=== PATIENT | female | born 1975 | race American Indian/Alaskan Native ===

== ENCOUNTER 2017-06-04 12:04 | Emergency (ER) | payer SELFPAY | END 2017-06-04 12:05 | disposition left against medical advice (07) | LOC: ED 12:04 | DX: M79.89 Other specified soft tissue disorders (principal); Z53.21 Procedure and treatment not carried out due to patient leaving prior to being seen by health care provider ==

== ENCOUNTER 2022-05-03 19:49 | Emergency (ER) | payer SELFPAY ==
--- NOTE | 2022-05-04 00:27 | XRay Report ---
LEFT HAND 3 VIEWS INDICATION / CLINICAL INFORMATION: Injury of left hand. COMPARISON: None available. FINDINGS: BONES and JOINT(S): There are acute fractures of the tips of the distal phalanges of the middle and r ing fingers. No other acute fracture or dislocation. SOFT TISSUES: Lacerations of the tips of the middle and ring fingers are noted with associated edema. No radiopaque foreign body is seen. No other significant abnormality. ADDITIONAL FINDINGS: None. IMPRESSION: Open fractures of the left middle and ring fingers as above. Signer Name: Jimenez Noyola MD Signed: 05/04/2022 12:23 AM Workstation Name: [id number]
[2022-05-04 00:31] VITALS: BP 128/64
[2022-05-04] MEDS ORDERED: LIDOCAINE (1%) 10 MG/1 ML VIAL 20 ML MDV INFILTRATI ONE (00:51)
[2022-05-04] MEDS ORDERED: ONDANSETRON 4 MG ODT TAB PO ONE (00:51)
[2022-05-04] MEDS ORDERED: HYDROcodone/ACETAMINOPHEN 5-325 MG TAB PO ONE (00:51)
[2022-05-04] MEDS ORDERED: IBUPROFEN 600 MG TAB PO ONE (00:51)
[2022-05-04] MEDS ORDERED: ceFAZolin 1 GM VIAL IM ONE (00:51)
[2022-05-04] MEDS ORDERED: NEOMY 3.5 MG/BACIT 400 UNITS/POLY B 5000 UNITS/GM OINT PACKET TP ONE (03:35)
--- NOTE | 2022-05-04 04:01 | Emergency Department Report ---
ED Upper Extremity Inj HPI - General Chief Complaint: Wound/Laceration Stated Complaint: LEFT HAND LACERATION Source: patient Mode of arrival: Ambulatory Limitations: No Limitations - History of Present Illness Initial Comments: Patient is a 46-year-old female with no past medical history who presents to the ED with complaint of acute onset persistent painful bleeding distal left middle and ring finger laceration wound after she was accidentally got injured by a lawnmower blade about 8 hours ago. Patient states that she was mowing her lawn when her left hand was hit by a rotating blade of the lawn more resulting in distal left middle and ring finger laceration. Patient states that she is not up-to-date with her tetanus vaccination. Patient denies numbness and tingling or weakness of left hand, syncope, fall, nausea and vomiting, head or neck injuries, back pain or hip pain. MD Complaint: Injury to:: left, hand, finger (distal left middle and ring finger lacerations) -: Gradual, hour(s) (8) Other Extremity Injury: Fingers: Left (Distal left middle and ring finger laceration wounds) Other Injuries: none Handedness: right Place: home Severity scale (0 -10): 6 Improves With: none Worsens With: movement of extremity Context: direct blow, laceration, injury Associated Symptoms: denies other symptoms. denies: weakness, numbness, suspects foreign body, nausea/vomiting, heard/felt popping sensat Treatments Prior to Arrival: bandage - Related Data Previous Rx's Medication Instructions Recorded Last Taken Type Ibuprofen [Motrin] 800 mg PO Q8HR PRN #30 tablet 05/04/22 Unknown Rx cephALEXin [Keflex] 500 mg PO Q8HR #30 cap 05/04/22 Unknown Rx traMADoL [Ultram] 50 mg PO Q6HR PRN #10 tablet 05/04/22 Unknown Rx Allergies Allergy/AdvReac Type Severity Reaction Status Date / Time No Known Allergies Allergy Unverified 05/03/22 20:47 ED Review of Systems ROS: Stated complaint: LEFT HAND LACERATION Other details as noted in HPI Constitutional: denies: chills, fever Eyes: denies: eye pain, eye discharge, vision change ENT: denies: ear pain, throat pain Respiratory: denies: cough, shortness of breath, wheezing Cardiovascular: denies: chest pain, palpitations Endocrine: no symptoms reported Gastrointestinal: denies: abdominal pain, nausea, vomiting, diarrhea Genitourinary: denies: urgency, dysuria, frequency, hematuria, discharge, abnormal menses, dyspareunia Musculoskeletal: arthralgia (distal left middle and ring finger laceration wounds). denies: back pain, joint swelling Skin: other (Bleeding distal left middle and ring finger lacerations). denies: rash, lesions Neurological: denies: headache, weakness, paresthesias Psychiatric: denies: anxiety, depression Hematological/Lymphatic: denies: easy bleeding, easy bruising ED Past Medical Hx - Past Medical History Previous Medical History?: No - Surgical History Past Surgical History?: Yes Additional Surgical History: - Medications Home Medications: Home Medications Medication Instructions Recorded Confirmed Last Taken Type Ibuprofen [Motrin] 800 mg PO Q8HR PRN #30 tablet 05/04/22 Unknown Rx cephALEXin [Keflex] 500 mg PO Q8HR #30 cap 05/04/22 Unknown Rx traMADoL [Ultram] 50 mg PO Q6HR PRN #10 tablet 05/04/22 Unknown Rx ED Physical Exam - General Limitations: No Limitations General appearance: alert, in no apparent distress - Head Head exam: Present: atraumatic, normocephalic, normal inspection - Eye Eye exam: Present: normal appearance, PERRL, EOMI Pupils: Present: normal accommodation - ENT ENT exam: Present: normal exam, normal orophraynx, mucous membranes moist, TM's normal bilaterally, normal external ear exam - Neck Neck exam: Present: normal inspection, full ROM. Absent: tenderness - Respiratory Respiratory exam: Present: normal lung sounds bilaterally. Absent: respiratory distress, wheezes, rales, chest wall tenderness, accessory muscle use, decreased breath sounds, prolonged expiratory - Cardiovascular Cardiovascular Exam: Present: regular rate, normal rhythm, normal heart sounds. Absent: systolic murmur, diastolic murmur, rubs, gallop - GI/Abdominal GI/Abdominal exam: Present: soft, normal bowel sounds. Absent: tenderness, guarding, rebound, hyperactive bowel sounds, hypoactive bowel sounds, organomegaly, mass - Extremities Exam Extremities exam: Present: normal inspection, full ROM, tenderness (Distal left middle and ring finger tenderness due to bleeding laceration wounds with partial nail avulsions), normal capillary refill. Absent: pedal edema, joint swelling, calf tenderness - Back Exam Back exam: Present: normal inspection, full ROM. Absent: tenderness, CVA tenderness (R), CVA tenderness (L), muscle spasm, paraspinal tenderness, vertebral tenderness - Neurological Exam Neurological exam: Present: alert, oriented X3, CN II-XII intact, normal gait, reflexes normal - Psychiatric Psychiatric exam: Present: normal affect, normal mood - Skin Skin exam: Present: warm, dry, intact, normal color, other (Bleeding distal left middle and ring finger laceration wounds with partial nail avulsion). Absent: rash ED Course Vital Signs 05/03/22 05/04/22 05/04/22 20:43 00:30 01:17 Temperature 98.4 F Pulse Rate 75 70 Respiratory 18 12 16 Rate Blood Pressure 127/83 Blood Pressure 128/64 [Left] O2 Sat by Pulse 100 100 Oximetry 05/04/22 01:19 Temperature Pulse Rate Respiratory 16 Rate Blood Pressure Blood Pressure [Left] O2 Sat by Pulse Oximetry - Laceration /Wound Repair Left Distal Finger Wound Location: upper extremity (distal left middle finger laceration) Wound Length (cm): 4 Wound's Depth, Shape: superficial, irregular, nail-avulsed Wound Explored: contaminated Irrigated w/ Saline (ccs): 300 Betadine Prep?: Yes Anesthesia: 1% Lidocaine Volume Anesthetic (ccs): 6 Wound Debrided: extensive Wound Repaired With: sutures Suture Size/Type: 4:0, proline Number of Sutures: 8 Layer Closure?: No Sterile Dressing Applied?: Yes Progress: The wound was cleaned extensively with normal saline and Betadine solution. Lidocaine 1% solution was used as a digital block for local anesthesia. When anesthesia was fully achieved, the wound was sutured per protocol using Prolene 4-0 sutures for a total of 8 sutures. The wound was then cleaned extensively normal saline and Neosporin ointment applied to the wound. The wound was then dressed appropriately and the patient will discharge home with pain medications and prophylactic antibiotics. Left Distal Hand Wound Location: upper extremity (distal left ring finger laceration) Wound Length (cm): 4 Wound's Depth, Shape: superficial, irregular, nail-avulsed, contused tissue Wound Explored: contaminated Irrigated w/ Saline (ccs): 300 Betadine Prep?: Yes Anesthesia: 1% Lidocaine Volume Anesthetic (ccs): 6 Wound Debrided: extensive Wound Repaired With: sutures Suture Size/Type: 4:0, proline Number of Sutures: 6 Layer Closure?: No Sterile Dressing Applied?: Yes Progress: The wound was cleaned extensively with normal saline and Betadine solution. Lidocaine 1% solution was used as a digital block for local anesthesia. When anesthesia was fully achieved, the wound was sutured per protocol using Prolene 4-0 sutures for a total of 8 sutures. The wound was then cleaned extensively normal saline and Neosporin ointment applied to the wound. The wound was then dressed appropriately and the patient will discharge home with pain medications and prophylactic antibiotics ED Medical Decision Making - Radiology Data Radiology results: report reviewed, image reviewed [facility] [address] [place] [address] XRay Report Signed Patient: ABELARDO COLLINS MR#: [id number] : 1975 Acct:[id number] Age/Sex: 46 / F ADM Date: 05/03/22 Loc: ED Attending Dr: Ordering Physician: GALINA SWEET Date of Service: 05/03/22 Procedure(s): XR hand 3+V LT Accession Number(s): [id number] cc: GALINA SWEET Fluoro Time In Minutes: LEFT HAND 3 VIEWS INDICATION / CLINICAL INFORMATION: Injury of left hand. COMPARISON: None available. FINDINGS: BONES and JOINT(S): There are acute fractures of the tips of the distal phalanges of the middle and ring fingers. No other acute fracture or dislocation. SOFT TISSUES: Lacerations of the tips of the middle and ring fingers are noted with associated edema. No radiopaque foreign body is seen. No other significant abnormality. ADDITIONAL FINDINGS: None. IMPRESSION: Open fractures of the left middle and ring fingers as above. Signer Name: Jimenez Noyola MD Signed: 05/04/2022 12:23 AM Workstation Name: [id number] Transcribed By: MN Dictated By: Jimenez Noyola MD Electronically Authenticated By: Jimenez Noyola MD Signed Date/Time: 05/04/2222 DD/ TD/TT: Print - Medical Decision Making This is a 46-year-old female with no past medical history who presents to the ED with complaint of acute onset persistent painful bleeding distal left middle and ring finger laceration wound after she was accidentally got injured by a lawnmower blade about 8 hours ago. Patient states that she was mowing her lawn when her left hand was hit by a rotating blade of the lawn more resulting in distal left middle and ring finger laceration. Patient states that she is not up-to-date with her tetanus vaccination. In the ED, patient is alert and o riented x3 and is not in any distress. Patient was treated for pain in the ED and also received booster tetanus vaccination. Left hand x-ray showed acute fractures of the tips of the distal phalanges of the middle and ring fingers. No other acute fracture or dislocation. Lacerations of the tips of the middle and ring fingers are noted with associated edema. No radiopaque foreign body is seen. No other significant abnormality. The wound was cleaned extensively with normal saline and Betadine solution. Lidocaine 1% solution was used as a digital block for local anesthesia. When anesthesia was fully achieved, the wound was sutured per protocol using Prolene 4-0 sutures for a total of 8 sutures. The wound was then cleaned extensively normal saline and Neosporin ointment applied to the wound. The wound was then dressed appropriately and the patient will discharge home with pain medications and prophylactic antibiotics. On reevaluation, patient's pain is well controlled medication. Patient is neurovascularly intact on the left middle and ring fingers. Patient was discharged home on pain medications and antibiotics and advised to follow-up with the orthopedic surgeon Dr. Wynne for further evaluation. Patient was advised return to the ED immediately if symptoms get worse. - Differential Diagnosis finger lacerations; finger nail avulsions; finger fractures; hand contusion Critical care attestation.: If time is entered above; I have spent that time in minutes in the direct care of this critically ill patient, excluding procedure time. ED Disposition Clinical Impression: Open fracture of distal phalanx of ring finger of left hand Qualifiers: Encounter type: initial encounter Fracture alignment: nondisplaced Qualified Code(s): S62.665B - Nondisplaced fracture of distal phalanx of left ring finger, initial encounter for open fracture Open fracture of distal phalanx of left middle finger Qualifiers: Encounter type: initial encounter Fracture alignment: nondisplaced Qualified Code(s): S62.663B - Nondisplaced fracture of distal phalanx of left middle finger, initial encounter for open fracture Laceration of left ring finger with damage to nail w/o foreign body Qualifiers: Encounter type: initial encounter Qualified Code(s): S61.315A - Laceration without foreign body of left ring finger with damage to nail, initial encounter Disposition: HOME / SELF CARE / HOMELESS Is pt being admited?: No Does the pt Need Aspirin: No Condition: Stable Instructions: Cast or Splint Care, Adult, [id number], Finger Fracture, Adult, [id number], Laceration Care, Adult, [id number], Sutured Wound Care, [id number] Additional Instructions: Take medication with food, drink plenty of fluids, follow-up with the orthopedic surgeon Dr. Wynne for further evaluation. Consider following up with your primary care physician in 7 to 10 days for reevaluation. Return to the ED immediately if symptoms get worse. Otherwise return to the ED or to your primary care physician in 12 to 14 days for suture removal. Prescriptions: cephALEXin [Keflex] 500 mg PO Q8HR #30 cap Ibuprofen [Motrin] 800 mg PO Q8HR PRN #30 tablet PRN Reason: Pain , Severe (7-10) traMADoL [Ultram] 50 mg PO Q6HR PRN #10 tablet PRN Reason: Pain Referrals: DANIEL LINDSEY MD [Primary Care Provider] - 7-10 days CHANO WYNNE MD [Staff Physician] - 3-5 Days Forms: Work/School Release Form(ED) Time of Disposition: 04:11 Print Language: MAURITIAN
== END 2022-05-04 04:32 | disposition home or self-care (01) ==
LOC: ED 19:49
DX: S62.665A Nondisplaced fracture of distal phalanx of left ring finger, initial encounter for closed fracture (principal); S61.315A Laceration without foreign body of left ring finger with damage to nail, initial encounter; X58.XXXA Exposure to other specified factors, initial encounter; Y93.89 Activity, other specified; Y92.89 Other specified places as the place of occurrence of the external cause; Y99.8 Other external cause status
CPT/HCPCS: 12004; 73130; 96372; 99283; J0690; J3490; Q0162